=== PATIENT | female | born 1955 | race Caucasian/White ===

== ENCOUNTER 2018-02-22 11:55 | Outpatient (CLI) | payer BC, SELFPAY ==
[2018-02-22 12:56] LABS: Abs Immature Grans 0.01 k/cumm (0.0-0.09); Absolute Basophil Count 0.03 k/cumm (0.0-0.2); Absolute Eosinophil Count 0.45 k/cumm (0.0-0.7); Absolute Lymphocyte Count 1.79 k/cumm (1.2-3.4); Absolute Monocyte Count 0.61 k/cumm (0.11-0.7); Absolute Neutrophil Count 2.96 k/cumm (1.2-6.7); Basophils % 0.5; Eosinophils % 7.7; HCT 42.4 % (36.0-46.0); HGB 14.1 g/dL (12.0-15.5); Immature Grans % 0.2; Lymphocytes % 30.6; Mean Corp. HGB Concentration 33.3 g/dL (32.0-36.0); Mean Corpuscular Hemoglobin 30.9 pg (27.0-33.0); Mean Corpuscular Volume 92.8 fL (80-95); Mean Platelet Volume 9.6 fL (8.0-11.0); Monocytes % 10.4; Neutrophils % 50.6; Platelet Count 209 x1000/uL (130-400); RBC 4.57 m/cumm (4.00-5.20); RBC Distribution Width 12.8 % (11.7-14.6); White Blood Cell Count 5.85 k/cumm (4.4-10.8)
== END 2018-02-22 12:15 ==
PROVIDERS: PCP Emergency Medicine; Visit Provider Internal Medicine
DX: Z01.818 Encounter for other preprocedural examination (principal)
CPT/HCPCS: 36415; 85025

== ENCOUNTER 2018-08-09 01:40 | Outpatient (CLI) | payer BC, SELFPAY ==
[2018-08-09 11:39] LABS: Anion Gap 9.2 mmol/L (3-11); BUN 5 mg/dL (7-18); CO2 27.8 mmol/L (21.0-32.0); CREATININE 0.68 mg/dL (0.55-1.02); Calcium 9.4 mg/dL (8.5-10.1); Chloride 104 mmol/L (98-107); Cholesterol 129 mg/dL (50-200); Glucose 192 mg/dL (70-100); HDL Cholesterol 43 mg/dL (40-60); LDL CHOLESTEROL 73 mg/dL (<100); Potassium 4.1 mmol/L (3.5-5.1); Sodium 141 mmol/L (136-145); TSH 0.09 uIU/mL (0.358-3.74); Triglyceride 68 mg/dL (30-150)
[2018-08-09 12:01] LABS: C-Reactive Protein 0.06 mg/dL (0.0-0.3)
[2018-08-09 12:04] LABS: HCT 41.3 % (36.0-46.0); HGB 13.9 g/dL (12.0-15.5); Mean Corp. HGB Concentration 33.7 g/dL (32.0-36.0); Mean Corpuscular Hemoglobin 30.8 pg (27.0-33.0); Mean Corpuscular Volume 91.6 fL (80-95); Mean Platelet Volume 10.3 fL (8.0-11.0); Platelet Count 237 x1000/uL (130-400); RBC 4.51 m/cumm (4.00-5.20); White Blood Cell Count 4.84 k/cumm (4.4-10.8)
[2018-08-09 12:46] LABS: Hemoglobin A1C 8.6 % (4.5-6.2)
[2018-08-10 10:13] LABS: Cyclic Citrullinated Peptide <2.5 U/mL (<5.0)
[2018-08-10 12:10] LABS: Rheumatoid Factor <8 IU/mL (<12.5)
== END 2018-08-09 02:00 ==
PROVIDERS: PCP Emergency Medicine; Visit Provider Emergency Medicine
DX: E11.9 Type 2 diabetes mellitus without complications (principal); E03.9 Hypothyroidism, unspecified; I10 Essential (primary) hypertension; M25.50 Pain in unspecified joint; R79.89 Other specified abnormal findings of blood chemistry
CPT/HCPCS: 36415; 80048; 80061; 83721; 85027; 86200; 83036; 84439; 84443; 86140; 86431

== ENCOUNTER 2018-11-02 02:00 | Outpatient (CLI) | payer BC, SELFPAY ==
[2018-11-02 11:24] LABS: Hemoglobin A1C 8.3 % (4.5-6.2); TSH 0.09 uIU/mL (0.358-3.74)
== END 2018-11-02 02:20 ==
PROVIDERS: PCP Emergency Medicine; Visit Provider Emergency Medicine
DX: E11.9 Type 2 diabetes mellitus without complications (principal); E03.9 Hypothyroidism, unspecified
CPT/HCPCS: 36415; 83036; 84443

== ENCOUNTER 2018-12-28 01:36 | Outpatient (CLI) | payer BC, SELFPAY ==
[2018-12-28 11:37] LABS: FREE T4 1.13 ng/dL (0.76-1.46)
[2018-12-28 11:39] LABS: Hemoglobin A1C 7.9 % (4.5-6.2)
[2018-12-28 16:42] LABS: T3,Free 5.5 pg/ml (2.8-5.3)
== END 2018-12-28 01:56 ==
PROVIDERS: PCP Emergency Medicine; Visit Provider Emergency Medicine
DX: E03.9 Hypothyroidism, unspecified (principal); E11.9 Type 2 diabetes mellitus without complications; R79.89 Other specified abnormal findings of blood chemistry
CPT/HCPCS: 36415; 83036; 84439; 84481

== ENCOUNTER 2019-02-09 07:00 | Outpatient (CLI) | payer BC, SELFPAY ==
[2019-02-10 08:48] LABS: Cyclic Citrullinated Peptide <2.5 U/mL (<5.0)
[2019-02-10 10:18] LABS: Rheumatoid Factor <8 IU/mL (<12.5)
== END 2019-02-09 07:20 ==
PROVIDERS: PCP Emergency Medicine; Visit Provider Emergency Medicine
DX: M19.90 Unspecified osteoarthritis, unspecified site (principal); M25.50 Pain in unspecified joint
CPT/HCPCS: 36415; 86200; 86431

== ENCOUNTER 2019-03-22 16:29 | Outpatient (CLI) | payer BC, SELFPAY ==
--- NOTE | 2019-03-22 09:30 | DI.RAD_ITS ---
EXAM: XR CHEST 2V PA LATERAL INDICATION: cough, R05. COMPARISON: PORTABLE CHEST ONE VIEW from 09/18/2012 TECHNIQUE: 2D digital imaging was performed. FINDINGS: Heart size and pulmonary vasculature are within normal limits. The lungs are clear. No pleural effu suri or pneumothorax is present. Age appropriate degenerative changes are seen in the spine. IMPRESSION: No acute pulmonary process.
== END 2019-03-22 16:49 ==
PROVIDERS: PCP Emergency Medicine; Visit Provider Emergency Medicine
DX: R05 Cough (principal)
CPT/HCPCS: 71046

== ENCOUNTER 2019-04-26 07:50 | Day surgery (SDC) | payer MEDICARE, SELFPAY ==
--- NOTE | 2019-04-26 07:28 | PDOC.DSDIS_ITS ---
Discharge Plan Disposition Patient Disposition: HOME Condition: Good Discharge Details Reason For Visit: Right ring finger trigger finger Attending Provider: Donis Patel Primary Care Provider: Per Haile Home Meds and New Rx's Prescriptions: New acetaminophen 500 mg tablet 500 mg PO Q6H PRN (Reason: pain) Qty: 60 RF: 2 ibuprofen 600 mg tablet 600 mg PO TID PRN (Reason: pain) Qty: 60 RF: 2 Continued glipizide 10 mg tablet extended release 24hr 10 mg PO DAILY Qty: 90 RF: 4 albuterol sulfate [ProAir HFA] 90 mcg/actuation HFA aerosol inhaler 1 - 2 puff Inhalation Q4H PRN Qty: 2 RF: 0 atorvastatin 80 MG tablet 80 mg PO DAILY RF: 0 aspirin [Aspirin Low-Strength] 81 MG tablet,chewable 81 mg PO DAILY RF: 0 lisinopril 2.5 MG tablet 2.5 mg PO DAILY RF: 0 metoprolol tartrate 25 MG tablet 25 mg PO DIRECTED RF: 0 isosorbide mononitrate 30 MG tablet extended release 24 hr 30 mg PO DAILY Qty: 90 RF: 3 (DME) blood-glucose meter [eWiseTouch Ultra2 Meter] 1 EACH kit 1 ea Miscellaneous DAILY Qty: 1 RF: 0 (DME) OneTouch Ultra Test strip 1 ea Miscellaneous DAILY Qty: 100 RF: 3 Dulera 100-5 mcg/actuation HFA aerosol inhaler 2 puff Inhalation BID Qty: 3 RF: 6 nitroglycerin 0.4 mg tablet, sublingual 0.4 mg Sublingual PRN Qty: 60 RF: 2 metformin 500 mg tablet 500 mg PO BID Qty: 180 RF: 3 (DME) lancets [e[employer]iseTouch UltraSoft Lancets] Misc 1 ea Miscellaneous DAILY Qty: 100 RF: 3 naproxen sodium [Aleve] 220 MG tablet 220 mg PO PRN PRNRF: 0 Discharge Instructions Stand Alone Forms: Jorge Scott. Finger Release Referrals: Donis Patel MD [ [facility] STAFF PHYSICIAN] - Activity:: Activity as Tolerated Remove Dressings/Wound Care:: 48 hours Shower/Bathe:: 48 hours Diet:: As Tolerated Discharge Orders Discharge Orders: Discharge Order (Routine); Ordered 04/26/19 Ordered By: Nae Jj DS: Diagnosis Discharge Diagnosis (1) Trigger finger, right ring finger: Status: Chronic
[2019-04-26 08:09] VITALS: BP 130/71; PULSE 58; RESP 16; TEMP 36.6; O2SAT 96
[2019-04-26] MEDS: Sodium Bicarbonate 50 MEQ/50 ML VIAL (09:50)
--- NOTE | 2019-04-26 13:46 | W.PM.OP ---
Date of service: 04/26/19 Time of Service: 13:46 Operative Note Operative Note DATE OF PROCEDURE: 04/26/19 PRE-OP DIAGNOSIS: Right ring finger trigger finger POST-OP DIAGNOSIS: same PROCEDURE: Trigger Finger Release - right ring finger SURGEON: Donis Patel ANESTHESIA: local ESTIMATED BLOOD LOSS: 0 PATHOLOGY: none sent COMPLICATIONS: None Patient was transported to: same day Patient's condition: stable Indications: I have seen Bethany in clinic for symptoms of a trigger finger. The catching, clicking, locking, and pain limited function. The diagnosis of trigger finger was evident. The symptoms had not responded to conservative measures. I discussed trigger finger release with the patient. I reviewed the risks of the procedure to include, but not limited to, bleeding, infection, pain, stiffness, incomplete release, damage to nerves or vessels, continued catching, recurrence. Despite these risks, the patient elected to proceed. Findings: There was a tightened A1 wilner which was released. There is also another band more proximal, a 0, which constricted against the flexor tendons. There was notable thickened synovium seen around the entirety of the flexor tendons. The flexor tendons were inspected and the patient was able to move the finger without any catching, clicking, or locking. Procedure Description: Bethany was greeted in the preoperative holding area where the correct side was identified and marked. The consent was reviewed with the patient and signed. All questions were answered. She was taken back to the operating room. The patient was placed into the supine position on the operating room table with the right arm on an arm board. All bony prominences were well padded. No prophylactic antibiotics were administered since this was a clean, elective hand surgical case. The right arm was then prepped with Chloraprep and draped in a standard fashion with stockinette and extremity drape. A timeout to confirm correct identity, side and site, procedure, allergies, anesthesia, and medical concerns was performed. The surgical site was marked as a longitudinal incision directly over the A1 wilner of the involved digit. This was confirmed with palpation during finger flexion. This area, overlying the metacarpal head, was then anesthetized with 1% Lidocaine. The patient tolerated this well and once the anesthetic had setup, the procedure began. A longitudinal incision was made through skin only, approximately 1cm. The deep tissues were dissected bluntly. Once the A1 wilner and flexor tendons were identified the soft tissue including neurovascular structures were retracted medially and laterally. There were no crossing structures over the A1 wilner. The proximal edge of the wilner was identified and the wilner was incised with tenotomy scissors. There was a release of the tendons once this was fully released. However, there still seem to be some restriction of tendon motion. Therefore further investigation discovered a more proximal band, A0 wilner. This was released. The tendons were then removed from the wound and inspected. There is notable thickened synovium around the tendons. Excess synovium was resected. The tendons were then returned and the patient was asked to move the finger into deep flexion and back to extension. There was no recreation of the pre-operative symptoms. The hand was then once more inspected for any A0 wilner or area of possible constriction. The wound was then irrigated and the skin was closed with a 4-0 Nylon. This was dressed with gauze and a Conform dressing. The patient tolerated the procedure well and was returned to the Same Day Surgery area in a stable condition suffering no known complication.
== END 2019-04-26 10:15 | disposition home or self-care (01) ==
LOC: SUR 07:51
PROVIDERS: PCP Emergency Medicine; Visit Provider Student in an Organized Health Care Education/Training Program
PROC: (CPT 26055; principal; 2019-04-26 10:15)
DX: M65.341 Trigger finger, right ring finger (principal)
CPT/HCPCS: 26055

== ENCOUNTER 2019-05-05 09:30 | Outpatient (CLI) | payer MEDICARE, SELFPAY | END 2019-05-05 09:50 | PROVIDERS: PCP Emergency Medicine | DX: Z47.89 Encounter for other orthopedic aftercare (principal); M65.341 Trigger finger, right ring finger ==

== ENCOUNTER 2019-05-19 00:37 | Outpatient (CLI) | payer MEDICARE, SELFPAY ==
--- NOTE | 2019-05-19 11:55 | DI.MAMMO_ITS ---
EXAM: MG MAMMO SCREENING CLINICAL HISTORY: screening TECHNIQUE: Bilateral full field digital CC and MLO mammographic images were obtained with 3D tomosyn thesis and utilizing computer aided detection (CAD). COMPARISON: Available for comparison. FINDINGS: Masses/Architectural Distortion: None seen. Microcalcifications: No suspicious pleomorphic-type are seen. Skin Thickening/Nipple Retraction: None. IMPRESSION: 1. No significant interval change with no specific features of malignancy noted. 2. Unless there is more urgent need, screening mammography is recommended, as per [place] [employer] guidelines. ACR BI-RAD Category- 1 Negative Breast Density - Category B - Scattered areas of fibroglandular density A negative radiographic report should not delay biopsy if a dominant or clinically suspicious mass is present. Up to ten percent of cancers are not identified on mammography. A negative report may reinforce clinical impression. Adenosis and dense breasts may obscure an underlying neoplasm. False positive reports average 6 to 10%. Patient will receive a letter notifying them of these results.
== END 2019-05-19 00:57 ==
PROVIDERS: PCP Emergency Medicine; Visit Provider Emergency Medicine
DX: Z12.31 Encounter for screening mammogram for malignant neoplasm of breast (principal)
CPT/HCPCS: 77063; 77067

== ENCOUNTER 2020-01-26 03:52 | Outpatient (CLI) | payer MEDICARE, SELFPAY ==
[2020-01-26 09:32] LABS: ESR 5 mm/hr (0-30)
[2020-01-26 10:05] LABS: Anion Gap 5.6 mmol/L (3-11); BUN 7 mg/dL (7-18); CO2 28.4 mmol/L (21.0-32.0); CREATININE 0.61 mg/dL (0.55-1.02); Calcium 8.9 mg/dL (8.5-10.1); Calculated LDL 85 mg/dL (<100); Chloride 104 mmol/L (98-107); Cholesterol 144 mg/dL (<200); Glucose 292 mg/dL (74-106); HDL Cholesterol 40 mg/dL (40-60); Potassium 4.1 mmol/L (3.5-5.1); Sodium 138 mmol/L (136-145); TSH 0.08 uIU/mL (0.36-3.74); Triglyceride 99 mg/dL (<150)
[2020-01-26 10:15] LABS: C-Reactive Protein 0.06 mg/dL (0.0-0.3)
== END 2020-01-26 04:12 ==
PROVIDERS: PCP Emergency Medicine; Visit Provider Emergency Medicine
DX: E03.9 Hypothyroidism, unspecified (principal); I10 Essential (primary) hypertension; M19.079 Primary osteoarthritis, unspecified ankle and foot
CPT/HCPCS: 36415; 80048; 80061; 85652; 83036; 84443; 86140

== ENCOUNTER → 2020-03-15 11:13 | Outpatient (BNVA) | payer MEDICARE, SELFPAY | PROVIDERS: PCP Emergency Medicine; Referring Provider Emergency Medicine; Visit Provider Physical Therapy Assistant | DX: Z12.11 Encounter for screening for malignant neoplasm of colon (principal); Z80.0 Family history of malignant neoplasm of digestive organs; E11.9 Type 2 diabetes mellitus without complications; Z79.84 Long term (current) use of oral hypoglycemic drugs ==

== ENCOUNTER 2020-03-19 00:39 | Outpatient (CLI) | payer MEDICARE, SELFPAY ==
--- NOTE | 2020-03-19 | DI.CT_ITS ---
EXAM: CT NECK W CLINICAL HISTORY: LT SUBMANDIBULAR SWELLING,R60.9 TECHNIQUE: COMPARISON: No exams were available for comparison FINDINGS: CT examination of the cervical region was performed with intravenous infusion of 100 cc of Omnipaque 350. Images obtained through the lung apices show elongated branching radiodensities consistent with mucoid impaction of bronchi. No gross mediastinal mass or adenopathy seen. Visualized aortic arch major branch vessels appear intact. Carotid circulation unremarkable through the cervical region. V ertebral arteries unremarkable. There is marked enlargement of the right lobe of thyroid which measures up to 3.3 cm AP dimension tra nsaxial imaging. The trachea is narrowed at level of this finding measuring about 9 millimeters in w idth 3 cm in AP diameter. This is presumably secondary to pressure from enlarged right thyroid lobe. No cervical adenopathy. No submandibular mass. Parotid gland is unremarkable. Laryngeal structures appear intact as visualized. IMPRESSION: No left-sided cervical mass or adenopathy. Note is made however of marked enlargement of the right t hyroid lobe which is heterogeneous in appearance and which narrows the trachea at this level. Please correlate clinically regarding any evidence of airway obstruction. Additional evaluation with thyroid ultrasound suggested RADIATION DOSE DELIVERED: 426.25mGy.cm Total DLP
[2020-03-19 14:42] LABS: BUN 8 mg/dL (7-18); CREATININE 0.71 mg/dL (0.55-1.02)
[2020-03-19] MEDS: Omnipaque 350 MG/ML 100 ML BTL IJ (15:14)
[2020-03-19] MEDS: Normal Saline Flush 10 ML SYR IVP (15:15)
[2020-03-19] MEDS: Normal Saline - Diluent 50 ML VIAL IV (15:15)
== END 2020-03-19 00:59 ==
PROVIDERS: PCP Emergency Medicine; Visit Provider Otolaryngology Otolaryngology/Facial Plastic Surgery
DX: E04.8 Other specified nontoxic goiter (principal); R60.0 Localized edema; R60.9 Edema, unspecified
CPT/HCPCS: 70491; 84520; 82565; J3490

== ENCOUNTER 2020-03-29 00:52 | Outpatient (CLI) | payer MEDICARE, SELFPAY ==
[2020-03-29 15:31] LABS: FREE T4 1.32 ng/dL (0.76-1.46); TSH 0.12 uIU/mL (0.36-3.74)
[2020-04-06 12:49] LABS: Thyroglobulin Antibody <1.8 IU/mL (<4.0); Thyroperoxidase Antibody 0.8 IU/mL (<9.0)
== END 2020-03-29 01:12 ==
PROVIDERS: PCP Emergency Medicine; Visit Provider Physician Assistant
DX: E05.90 Thyrotoxicosis, unspecified without thyrotoxic crisis or storm (principal)
CPT/HCPCS: 36415; 86376; 84439; 84443

== ENCOUNTER 2020-03-30 10:37 | Day surgery (SDC) | payer MEDICARE, SELFPAY ==
[2020-03-30 10:47] VITALS: BP 144/82; PULSE 53; RESP 18; TEMP 36.7; O2SAT 95
[2020-03-30] MEDS: Lactated Ringers 1,000 ML 80 ML IV (11:22)
--- NOTE | 2020-03-30 12:21 | BOWEL_PTH ---
PATIENT: Bethany Varela LOC: [facility] U#:[id number] AGE/SX: 64/F ROOM: RE03/30/[address]: Nanci Pollock MD : 1955 BED: DIS: 03/30/2020 SPEC #: [id number] RECD: 03/30/20 13:48 STATUS: ONEYDA REQ #: [id number] MARIO: 03/30/20 12:[address]: Nanci Pollock DEPT: Surgical Specimen RECD BY: Aliza Smith ENTERED: 03/30/20 13:49 SP TYPE: Bowel OTHR DR: Per Haile DO Tissues: 1 - BIOPSY BOWEL 2 - BIOPSY BOWEL Procedures: GROSS AND MICRO LEVEL 4 Comments: [id number] ([id number] [facility] [place]#)
--- NOTE | 2020-03-30 12:54 | W.PM.DSUDISC ---
Discharge Plan Disposition Patient Disposition: HOME Condition: Good Discharge Details Reason For Visit: Colonoscopy Attending Provider: Nanci Pollock Primary Care Provider: Per Haile Home Meds and New Rx's Prescriptions: Continued metformin 500 mg tablet 1,000 mg PO BID Qty: 180 RF: 3 atorvastatin 80 MG tablet 80 mg PO DAILY RF: 0 aspirin [Aspirin Low-Strength] 81 MG tablet,chewable 81 mg PO DAILY RF: 0 metoprolol tartrate 25 MG tablet 25 mg PO DIRECTED RF: 0 isosorbide mononitrate 30 MG tablet extended release 24 hr 30 mg PO DAILY Qty: 90 RF: 3 (DME) blood-glucose meter [ezNetPay Ultra2 Meter] 1 EACH kit 1 ea Miscellaneous DAILY Qty: 1 RF: 0 nitroglycerin 0.4 mg tablet, sublingual 0.4 mg Sublingual PRN Qty: 60 RF: 2 (DME) blood sugar diagnostic Strip 1 ea Miscellaneous DAILY Qty: 100 RF: 3 (DME) lancets [[employer]Touch UltraSoft Lancets] Misc 1 ea Miscellaneous DAILY Qty: 100 RF: 3 lisinopril 2.5 mg tablet 2.5 mg PO DAILY Qty: 90 RF: 3 budesonide-formoterol [Symbicort] 80-4.5 mcg/actuation HFA aerosol inhaler 2 puff IH BID Qty: 10.2 RF: 3 albuterol sulfate [ProAir HFA] 90 mcg/actuation HFA aerosol inhaler 1 - 2 puff Inhalation Q4H PRN Qty: 2 RF: 0 glipizide 10 mg tablet extended release 24hr 10 mg PO DAILY Qty: 90 RF: 4 ibuprofen 600 mg tablet 600 mg PO TID PRN (Reason: pain) Qty: 60 RF: 2 naproxen sodium [Aleve] 220 MG tablet 220 mg PO PRN PRNRF: 0 acetaminophen 500 mg tablet 500 mg PO Q6H PRN (Reason: pain) Qty: 60 RF: 2 Discontinued polyethylene glycol 3350 17 gram/dose powder 238 g PO ONCE Qty: 238 RF: 0 bisacodyl [Dulcolax (bisacodyl)] 5 mg tablet,delayed release (DR/EC) 5 mg PO ONCE Qty: 4 RF: 0 Discharge Instructions Additional Instructions: Findings: Four small polyps were removed. My office will send a letter with biopsy results. Follow up: Plan for a colonoscopy in 3-5 years depending on biopsy results. Please call if you develop: fevers >101.5 Nausea or Vomiting Abdominal pain that is not transient DAY SURGERY UNIT POST COLONOSCOPY INSTRUCTIONS 1. Because there will be medication in your system for the next 24 hours, you may feel a little sleepy. Your coordination will be affected. Therefore: a. Do not drive or operate dangerous equipment for 24 hours. b. Do not drink alcohol beverages for 24 hours (not even beer). c. Plan to go home and rest for the day. 2. Generally there are no restrictions on your activity after a day or so has gone by, but you may feel a bit fatigued for a few days. 3 After you arrive home you may have a light meal and return to a normal diet as you can tolerate it without feeling sick to your stomach. 4. After surgery, you may feel pain or discomfort. This should be only transient, but if it persists please contact your doctor. 5. If there are any questions regarding the findings of your procedure, please feel free to contact your doctor. 6. If you are unable to contact your doctor with a problem, contact the hospital at [phone]. 7. Continue all your regular medications unless directed otherwise. I understand the above instructions and have no questions. Signature of Patient or Responsible Adult Escort Date/Time Name of Responsible Adult Escort Signature of Nurse Date/Time Activity:: Activity as Tolerated Diet:: As Tolerated Discharge Orders Discharge Orders: Discharge Order (Routine); Ordered 03/30/20 Ordered By: Nanci Pollock DS: Diagnosis Discharge Diagnosis (1) Colon polyps: Status: Acute
[2020-03-30 13:05] VITALS: BP 151/81; PULSE 57; RESP 16; TEMP 36.4; O2SAT 97
--- NOTE | 2020-04-01 19:09 | W.COLOREPORT ---
Colonoscopy Report Date of procedure: 03/30/20 Pre-op diagnosis general: Screening Post-op diagnosis procedure note: other (Colon polyps) Procedure: Colonoscopy with cold forceps polypectomy Surgeon: Nanci Pollock Anesthesia proc note operative: MAC Indications: This 64 year old woman presents for routine screening colonoscopy. Her last procedure in 2009 was normal. She has no symptoms or FH colon cancer. Procedure Description: The patient was placed in the left Morales position. Propofol was titrated to sedation. Digital rectal examination revealed no abnormalities. The scope was advanced to the cecum without difficulty. The ileocecal valve and appendiceal orifice were clearly identified. The prep was good. The scope was slowly withdrawn over the course of greater than 6 minutes. In the ascending colon, two diminuitive polyps were removed with the cold forceps and sent in the same specimen container. Two diminuitive polyps were removed from the transverse colon and sent in the same specimen container. No abnormalities were seen in the descending, sigmoid colon or rectum including on retroflexed view. The patient tolerated the procedure well and was stable to recovery. Plan for colonoscopy in 3-5 years depending on polyp pathology.
== END 2020-03-30 13:50 | disposition home or self-care (01) ==
PROVIDERS: PCP Emergency Medicine; Visit Provider Surgery
PROC: 0DJD8ZZ Inspection of Lower Intestinal Tract, Via Natural or Artificial Opening Endoscopic (ICD-10-PCS; CPT 45378; principal; 2020-03-30 12:45)
DX: Z12.11 Encounter for screening for malignant neoplasm of colon (principal); K21.9 Gastro-esophageal reflux disease without esophagitis; E11.9 Type 2 diabetes mellitus without complications; I10 Essential (primary) hypertension
CPT/HCPCS: 45380; 88305; J2001

== ENCOUNTER 2020-05-02 01:15 | Outpatient (CLI) | payer MEDICARE, SELFPAY ==
--- NOTE | 2020-05-02 10:15 | DI.NM_ITS ---
CLINICAL HISTORY: ASYMMETRICAL THYROID, E07.9. COMPARISON: CT CT NECK W from 03/19/2020 NM NM I123 THYROID UP SC DAY 1 from 05/02/2020 TECHNIQUE: Capsule Dose: 353 uCi I-123 Images: At 4 hours. FINDINGS: The radio iodine uptake at 4 hours is 8.5 percent. The total radioiodine uptake was 25.4% at 24 hours. Images at 4 hours show a hot nodule occupying the right lobe the thyroid, consistent with a functioni ng nodule. Findings likely cyst signify a benign nodule... IMPRESSION: 1. Total radioiodine uptake of 25.4%, in the normal range.. SNM Guidelines: Normal uptake values 10-35%. Graves Uptake >50-80%. 2. A hot nodule is noted corresponding to the findings on the previous CT. DATA REPOSITORY:
== END 2020-05-02 01:35 ==
PROVIDERS: PCP Emergency Medicine; Visit Provider Otolaryngology Otolaryngology/Facial Plastic Surgery
DX: E04.1 Nontoxic single thyroid nodule (principal)
CPT/HCPCS: A9516

== ENCOUNTER 2020-05-03 02:13 | Outpatient (CLI) | payer MEDICARE, SELFPAY | END 2020-05-03 02:33 | PROVIDERS: PCP Emergency Medicine; Visit Provider Otolaryngology Otolaryngology/Facial Plastic Surgery | DX: E07.89 Other specified disorders of thyroid (principal) | CPT/HCPCS: 78014; A9512 ==

== ENCOUNTER 2020-05-22 03:23 | Outpatient (CLI) | payer MEDICARE, SELFPAY ==
[2020-05-22 13:57] LABS: Hemoglobin A1C 7.6 % (<5.7)
== END 2020-05-22 03:43 ==
PROVIDERS: PCP Emergency Medicine; Visit Provider Emergency Medicine
DX: E11.9 Type 2 diabetes mellitus without complications (principal)
CPT/HCPCS: 36415; 83036

== ENCOUNTER 2020-08-10 11:56 | Outpatient (REF) | payer MEDICARE, SELFPAY ==
--- NOTE | 2020-08-10 10:30 | PAPFT_PTH ---
PATIENT: Bethany Varela LOC: [facility] U#:[id number] AGE/SX: 65/F ROOM: RE08/10/[address]: EVER Rausch : 1955 BED: DIS: 08/10/2020 SPEC #: [id number] RECD: 08/10/20 12:56 STATUS: ONEYDA REQ #: [id number] MARIO: 08/10/20 10:[address]: Miguelina Harry DEPT: [facility] Cytology RECD BY: Diamond Allison ENTERED: 08/10/20 12:56 SP TYPE: PAPFT OTHR DR: Ana Haro MD, DC Tissues: 1 - CX/ENDOCX FOR PAP SMEARS Procedures: PAP THIN PREP/UVM Screening HPV DNA PROBE Comments: [id number]
== END 2020-08-10 11:57 | disposition home or self-care (01) ==
LOC: LBN 11:56
PROVIDERS: PCP Family Medicine; Visit Provider Nurse Practitioner Family
DX: Z12.4 Encounter for screening for malignant neoplasm of cervix (principal); Z11.51 Encounter for screening for human papillomavirus (HPV)
CPT/HCPCS: 88142; 87624

== ENCOUNTER 2020-08-14 01:43 | Outpatient (CLI) | payer MEDICARE, SELFPAY ==
--- NOTE | 2020-08-14 11:55 | DI.MAMMO_ITS ---
EXAM: MG MAMMO SCREENING CLINICAL HISTORY: screening,Z12.39 TECHNIQUE: Bilateral full field digital CC and MLO mammographic images were obtained with 3D tomosyn thesis and utilizing computer aided detection (CAD). COMPARISON: Available for comparison. FINDINGS: Masses/Architectural Distortion: There is an asymmetry in the outer central right breast on the crani ocaudad view 7 cm from the nipple. Microcalcifications: No suspicious pleomorphic-type are seen. Skin Thickening/Nipple Retraction: None. IMPRESSION: 1. Asymmetry in the outer central right breast. This is appreciated on the CC view. 2. Further evaluation with spot compression view and a right breast ultrasound is recommended. BI-RADS Category 0 - Assessment Incomplete: Need additional imaging evaluation Breast Density - Category B - Scattered areas of fibroglandular density Breast density category C or D implies that the patient has dense breast tissue. Dense breast tissue is very common and is not abnormal but dense breast tissue can make it harder to find cancer on a ma mmogram. Also, dense breast tissue may increase their breast cancer risk. This information about the result of the mammogram report was provided to the patient to raise their awareness. Use this report when you speak with the patient about their risks for breast cancer, which includes their family hist ory. At that time, you may recommend for more screening tests (Ultrasound or MRI) as they might be us eful based on their risk. A negative radiographic report should not delay biopsy if a dominant or clinically suspicious mass is present. Up to ten percent of cancers are not identified on mammography. A negative report may reinforce clinical impression. Adenosis and dense breasts may obscure an underlying neoplasm. False positive reports average 6 to 10%. Patient will receive a letter notifying them of these results.
== END 2020-08-14 02:03 ==
PROVIDERS: PCP Family Medicine; Visit Provider Nurse Practitioner Family
DX: Z12.31 Encounter for screening mammogram for malignant neoplasm of breast (principal); R92.8 Other abnormal and inconclusive findings on diagnostic imaging of breast
CPT/HCPCS: 77063; 77067

== ENCOUNTER 2020-08-17 04:00 | Outpatient (CLI) | payer MEDICARE, SELFPAY ==
--- NOTE | 2020-08-17 | DI.US_ITS ---
EXAM: MG MAMMO SCREEN CALL BACK UNI CLINICAL HISTORY: F/U MAMMO, ASYMMETRY OUTER CENTRAL BREAST TECHNIQUE: Mammograms were interpreted according to the usual protocol including computer analysis w ith CAD system, tomosynthesis and C-view imaging. COMPARISON: FINDINGS: Additional mammographic views of the right breast and right breast ultrasound are interpreted in conj unction. These examinations were obtained to evaluate questionable area of nodularity projected in t he central portion of the right breast about 6 cm from the nipple seen on recent CC view. Additional mammographic views fail to show a discrete mass. Breast ultrasound shows no evidence of m ass or cyst. There is mild persistent mammographic asymmetric density at this site on compression vi ews. IMPRESSION: No specific evidence of malignancy at this time. Follow-up unilateral right breast mammogram recomme nded in 6 months. BI-RADS Category 3 - 6 month - Probably Benign Finding: Recommend follow-up mammography in 6 months Breast Density - Category C - Heterogeneously dense
== END 2020-08-17 04:20 ==
PROVIDERS: PCP Family Medicine; Visit Provider Nurse Practitioner Family
DX: Z12.31 Encounter for screening mammogram for malignant neoplasm of breast (principal); R92.8 Other abnormal and inconclusive findings on diagnostic imaging of breast; N64.59 Other signs and symptoms in breast
CPT/HCPCS: 76642; 77063; 77067

== ENCOUNTER 2020-08-20 04:15 | Outpatient (CLI) | payer MEDICARE, SELFPAY ==
[2020-08-20 13:05] LABS: Hemoglobin A1C 9.6 % (<5.7)
[2020-08-20 13:16] LABS: ALT 27 U/L (14-59); AST 11 U/L (15-37); Albumin 3.5 g/dL (3.4-5.0); Alkaline Phosphatase 125 U/L (46-116); Anion Gap 6.7 mmol/L (3-11); BUN 12 mg/dL (7-18); CO2 29.3 mmol/L (21.0-32.0); CREATININE 0.8 mg/dL (0.55-1.02); Calculated LDL 71 mg/dL (<100); Chloride 102 mmol/L (98-107); Cholesterol 128 mg/dL (<200); Glucose 386 mg/dL (74-106); HDL Cholesterol 40 mg/dL (40-60); Potassium 4.7 mmol/L (3.5-5.1); Sodium 138 mmol/L (136-145); TSH (W/Ref FT4) 0.01 uIU/mL (0.36-3.74); Total Protein 6.3 g/dL (6.4-8.2); Triglyceride 89 mg/dL (<150)
[2020-08-20 13:26] LABS: COMMENT (LAB VIEW ONLY) 24.31 mg/dL; Microalb ug/mg Crea 32.1 ug/mg Cr
[2020-08-20 13:51] LABS: FREE T4 1.33 ng/dL (0.76-1.46)
[2020-08-23 17:20] LABS: IGF-1, LC/MS, S 648 ng/mL (34-194); Z-score >3.00 SD
== END 2020-08-20 04:16 | disposition home or self-care (01) ==
LOC: LOS 04:15
PROVIDERS: PCP Family Medicine; Visit Provider Student in an Organized Health Care Education/Training Program
DX: I10 Essential (primary) hypertension (principal); E03.9 Hypothyroidism, unspecified; R94.6 Abnormal results of thyroid function studies; E78.5 Hyperlipidemia, unspecified; R79.89 Other specified abnormal findings of blood chemistry; E11.9 Type 2 diabetes mellitus without complications
CPT/HCPCS: 36415; 80053; 80061; 82043; 82570; 83036; 84305; 84439; 84443

== ENCOUNTER 2020-09-20 01:59 | Outpatient (CLI) | payer MEDICARE, SELFPAY ==
[2020-09-25 12:31] LABS: IGF-1, LC/MS, S 665 ng/mL (34-194); Z-score >3.00 SD
== END 2020-09-20 02:00 | disposition home or self-care (01) ==
LOC: LOS 02:00
PROVIDERS: PCP Family Medicine; Visit Provider Student in an Organized Health Care Education/Training Program
DX: E22.0 Acromegaly and pituitary gigantism (principal)
CPT/HCPCS: 36415; 84305

== ENCOUNTER 2021-04-02 01:08 | Outpatient (CLI) | payer MEDICARE, SELFPAY ==
--- NOTE | 2021-04-02 14:44 | DI.MAMMO_ITS ---
Exam(s) MAMMO DIAGNOSTIC UNI EXAM: MAMMO DIAGNOSTIC UNI CLINICAL HISTORY: 6 mo f/u right mammo,r92.8. TECHNIQUE: Craniocaudal and mediolateral oblique Full Field Digital Mammography views of the right b reast with Computer Aided Diagnosis followed by Tomosynthesis. COMPARISON: Priors available for comparison FINDINGS: Mammography/Tomosynthesis: Masses/Architectural Distortion: No suspicious masses are seen. No areas of architectural distortion are present. Focal asymmetries appear stable compared to the prior examinations. Microcalcifictions: No suspicious pleomorphic-type are seen. Skin Thickening/Nipple Retraction: None. IMPRESSION: 1. No evidence of malignancy is noted. 2. Unless there is more urgent need, follow-up screening mammography is recommended, as per [place] [employer] guidelines. 3. The findings were discussed with the patient on the date of the examination. BI-RADS Category 1 - Negative Breast Density - Category C - Heterogeneously dense Breast density Category C or D implies that the patient has dense breast tissue. Dense breast tissue can make it harder to find cancer on a mammogram. Dense breast tissue is also associated with an incr eased risk of breast cancer. This information about the result of the mammogram report was provided to the patient to raise their awareness. Use this report when you speak with the patient about their risks for breast cancer, which includes their family history. At that time, you may recommend additional screening tests (Ultrasoun d or MRI) as these tests may add significant information. A negative radiographic report should not delay biopsy if a dominant or clinically suspicious mass is present. Up to ten percent of cancers are not identified on mammography. A negative report may reinforce clinical impression. Adenosis and dense breasts may obscure an underlying neoplasm. False positive reports average 6 to 10%. Patient will receive a letter notifying them of these results.
== END 2021-04-02 01:28 ==
PROVIDERS: PCP Family Medicine; Visit Provider Nurse Practitioner Family
DX: Z12.31 Encounter for screening mammogram for malignant neoplasm of breast (principal); R92.8 Other abnormal and inconclusive findings on diagnostic imaging of breast; N64.89 Other specified disorders of breast
CPT/HCPCS: 77061; 77065; G0279

== ENCOUNTER 2021-10-02 01:44 | Outpatient (CLI) | payer MEDICARE, SELFPAY ==
[2021-10-02 11:00] LABS: ALT 29 U/L (14-59); AST 17 U/L (15-37); Albumin 3.7 g/dL (3.4-5.0); Alkaline Phosphatase 86 U/L (46-116); Anion Gap 8.6 mmol/L (3-11); BUN 9 mg/dL (7-18); CO2 28.4 mmol/L (21.0-32.0); CREATININE 0.9 mg/dL (0.55-1.02); Calcium 9.6 mg/dL (8.5-10.1); Chloride 105 mmol/L (98-107); Glucose 191 mg/dL (74-106); Potassium 4.8 mmol/L (3.5-5.1); Sodium 142 mmol/L (136-145); TSH (W/Ref FT4) 0.01 uIU/mL (0.36-3.74); Total Protein 6.6 g/dL (6.4-8.2)
[2021-10-02 11:21] LABS: FREE T4 1.09 ng/dL (0.76-1.46)
== END 2021-10-02 01:45 | disposition home or self-care (01) ==
LOC: LBO 01:45
PROVIDERS: PCP Family Medicine; Visit Provider Family Medicine
DX: E11.9 Type 2 diabetes mellitus without complications (principal); R79.89 Other specified abnormal findings of blood chemistry
CPT/HCPCS: 36415; 80053; 84439; 84443

== ENCOUNTER 2022-01-23 05:06 | Outpatient (CLI) | payer MEDICARE, SELFPAY ==
[2022-01-23 13:25] LABS: ALT 25 U/L (14-59); AST 18 U/L (15-37); Albumin 3.8 g/dL (3.4-5.0); Alkaline Phosphatase 55 U/L (46-116); Anion Gap 7.3 mmol/L (3-11); BUN 10 mg/dL (7-18); CO2 28.7 mmol/L (21.0-32.0); CREATININE 0.9 mg/dL (0.55-1.02); Calcium 9.4 mg/dL (8.5-10.1); Chloride 107 mmol/L (98-107); Estimated GFR 70.07 (mL/min/1.73m2); Glucose 137 mg/dL (74-106); Hemoglobin A1C 6.9 % (<5.7); Potassium 4.8 mmol/L (3.5-5.1); Sodium 143 mmol/L (136-145); Total Protein 6.6 g/dL (6.4-8.2)
== END 2022-01-23 05:07 | disposition home or self-care (01) ==
LOC: LOS 05:06
PROVIDERS: PCP Family Medicine; Visit Provider Family Medicine
DX: E11.9 Type 2 diabetes mellitus without complications (principal); E22.0 Acromegaly and pituitary gigantism; I10 Essential (primary) hypertension; Z86.018 Personal history of other benign neoplasm
CPT/HCPCS: 36415; 80053; 83036

== ENCOUNTER 2022-01-23 14:12 | Outpatient (REF) | payer MEDICARE, SELFPAY ==
[2022-01-24 18:10] LABS: Albumin, Ur < 0.6 mg/dL (See Note); Creatinine, Ur 39.7 mg/dL (See Note)
== END 2022-01-23 14:13 | disposition home or self-care (01) ==
LOC: LBN 14:12
PROVIDERS: PCP Family Medicine; Visit Provider Family Medicine
DX: E11.9 Type 2 diabetes mellitus without complications (principal); I10 Essential (primary) hypertension; E22.0 Acromegaly and pituitary gigantism
CPT/HCPCS: 82043; 82570

== ENCOUNTER 2022-04-25 02:47 | Outpatient (CLI) | payer MEDICARE, SELFPAY ==
[2022-04-25 13:32] LABS: Hemoglobin A1C 7.2 % (<5.7)
[2022-04-25 14:47] LABS: ALT 16 U/L (14-59); AST 15 U/L (15-37); Albumin 3.7 g/dL (3.4-5.0); Alkaline Phosphatase 57 U/L (46-116); Anion Gap 8.4 mmol/L (3-11); BUN 12 mg/dL (7-18); Bilirubin, Total 0.6 mg/dL (0.2-1.0); CO2 28.6 mmol/L (21.0-32.0); Calcium 9.3 mg/dL (8.5-10.1); Chloride 105 mmol/L (98-107); Estimated GFR 61.75 (mL/min/1.73m2); FREE T4 0.94 ng/dL (0.76-1.46); Glucose 134 mg/dL (74-106); Potassium 4.7 mmol/L (3.5-5.1); Sodium 142 mmol/L (136-145); TSH 1.17 uIU/mL (0.36-3.74); Total Protein 6.6 g/dL (6.4-8.2)
[2022-04-28 09:19] LABS: FSH 39.2 mIU/mL (See Note)
[2022-04-28 09:24] LABS: LH 12.7 mIU/mL (See Note); Prolactin 5.1 ng/mL (See Note)
== END 2022-04-25 02:48 | disposition home or self-care (01) ==
LOC: LBO 02:47
PROVIDERS: PCP Family Medicine; Visit Provider Student in an Organized Health Care Education/Training Program
DX: D35.2 Benign neoplasm of pituitary gland (principal); E11.9 Type 2 diabetes mellitus without complications; E05.90 Thyrotoxicosis, unspecified without thyrotoxic crisis or storm
CPT/HCPCS: 36415; 80053; 83001; 83002; 83036; 84146; 84439; 84443

== ENCOUNTER 2022-08-26 10:50 | Outpatient (REF) | payer MEDICARE, SELFPAY ==
[2022-08-26 13:19] LABS: Microalb ug/mg Crea 10.5 ug/mg Cr
== END 2022-08-26 10:51 | disposition home or self-care (01) ==
LOC: LBN 10:50
PROVIDERS: PCP Family Medicine; Visit Provider Family Medicine
DX: E11.9 Type 2 diabetes mellitus without complications (principal)
CPT/HCPCS: 82043; 82570

== ENCOUNTER 2022-09-04 11:21 | Outpatient (CLI) | payer MEDICARE, SELFPAY ==
[2022-09-04 10:46] LABS: Anion Gap 6.2 mmol/L (3-11); BUN 15 mg/dL (7-18); CO2 30.8 mmol/L (21.0-32.0); Calcium 9.1 mg/dL (8.5-10.1); Calculated LDL 66 mg/dL (<100); Chloride 103 mmol/L (98-107); Cholesterol 126 mg/dL (<200); Estimated GFR 61.36 (mL/min/1.73m2); Glucose 303 mg/dL (74-106); HDL Cholesterol 43 mg/dL (40-60); Potassium 4.7 mmol/L (3.5-5.1); Sodium 140 mmol/L (136-145); Triglyceride 87 mg/dL (<150)
== END 2022-09-04 11:22 | disposition home or self-care (01) ==
LOC: LBO 11:21
PROVIDERS: PCP Family Medicine; Visit Provider Physician Assistant Medical
DX: I25.10 Atherosclerotic heart disease of native coronary artery without angina pectoris (principal)
CPT/HCPCS: 36415; 80048; 80061; 83735

== ENCOUNTER 2022-11-10 08:40 | Outpatient (CLI) | payer MEDICARE, SELFPAY ==
--- NOTE | 2022-11-10 08:40 | RT.EKG_ITS ---
APPROVED REPORT Exam: Resting ECG Reason for Exam: Cataract surgery scheduled at [facility] [place] Patient Location: O HR:53 bpm ECG Measurements Heart Rate 53 AXIS SD 168 P 51 QRSd 120 QRS -11 QT 446 T 100 QTc 419 Conclusion Sinus rhythm...normal P axis, V-rate 50- 99 LVH with secondary repolarization abnormality...multi-LVH criteria, abnrm ST-T Inferior infarct, old...Q >35mS, II III aVF
== END 2022-11-10 08:41 | disposition home or self-care (01) ==
LOC: DI.CM 08:43
PROVIDERS: PCP Family Medicine; Visit Provider Family Medicine
DX: Z01.818 Encounter for other preprocedural examination (principal)
CPT/HCPCS: 93010

== ENCOUNTER 2022-12-02 01:01 | Outpatient (CLI) | payer MEDICARE, SELFPAY ==
--- NOTE | 2022-12-02 08:30 | DI.RAD_ITS ---
Exam(s) XR KNEE LT 3V AP,LAT,ERNESTO EXAM: XR KNEE LT 3V AP,LAT,ERNESTO CLINICAL HISTORY: knee pain,lt, m25.562. TECHNIQUE: 2D digital imaging was performed. COMPARISON: No exams were available for comparison FINDINGS: 3 views No evidence of fracture or obvious joint effusion. Large sesamoid bone noted in the distal patellar tendon. Another calcification is seen posteriorly,, this measuring 6 x 5 mm. This is medially locat ed and therefore not the fabella. There are mild degenerative changes in the medial compartment. The none in the lateral compartment. Patellofemoral compartment unremarkable. IMPRESSION: Mild degenerative changes in the medial compartment. Other changes as above. DATA REPOSITORY: RADIATION DOSE DELIVERED:
== END 2022-12-02 01:21 ==
LOC: DI 01:01
PROVIDERS: PCP Family Medicine; Visit Provider Family Medicine
DX: M25.562 Pain in left knee (principal); M17.12 Unilateral primary osteoarthritis, left knee; M25.862 Other specified joint disorders, left knee
CPT/HCPCS: 73562

== ENCOUNTER 2023-09-24 11:03 | Outpatient (CLI) | payer MEDICARE, SELFPAY ==
[2023-09-24 12:27] LABS: HCT 42.7 % (36.0-46.0); HGB 13.5 g/dL (11.2-15.7); MCH 30.2 pg (27.0-33.0); MCHC 31.6 % (32.0-36.0); MCV 96 fL (80-95); MPV 9.6 fL (8.0-11.0); Platelet Count 248 10^3/uL (130-400); RBC 4.47 10^6/uL (3.93-5.22); RDW 13.9 % (11.7-14.6); RDW-SD 48.6 fL; WBC 7.28 10^3/uL (4.4-10.8)
[2023-09-24 12:41] LABS: COMMENT (LAB VIEW ONLY) 22.24 mg/dL
[2023-09-24 12:52] LABS: Hemoglobin A1C 6.6 % (<5.7)
[2023-09-24 12:54] LABS: ALT 35 U/L (14-59); AST 19 U/L (15-37); Alkaline Phosphatase 64 U/L (46-116); Anion Gap 8.3 mmol/L (3-11); BUN 21 mg/dL (7-18); Bilirubin, Total 0.5 mg/dL (0.2-1.0); CO2 29.7 mmol/L (21.0-32.0); CREATININE 1.2 mg/dL (0.55-1.02); Calcium 9.9 mg/dL (8.5-10.1); Calculated LDL 72 mg/dL (<100); Chloride 102 mmol/L (98-107); Cholesterol 153 mg/dL (<200); Glucose 114 mg/dL (74-106); HDL Cholesterol 55 mg/dL (40-60); Potassium 4.3 mmol/L (3.5-5.1); Sodium 140 mmol/L (136-145); TSH (W/Ref FT4) 0.58 uIU/mL (0.36-3.74); Total Protein 6.8 g/dL (6.4-8.2); Triglyceride 130 mg/dL (<150)
== END 2023-09-24 11:04 | disposition home or self-care (01) ==
LOC: LOS 11:04
PROVIDERS: PCP Family Medicine; Visit Provider Family Medicine
DX: I10 Essential (primary) hypertension (principal); D64.9 Anemia, unspecified; E03.9 Hypothyroidism, unspecified; E11.9 Type 2 diabetes mellitus without complications
CPT/HCPCS: 36415; 80053; 80061; 85027; 82043; 82570; 83036; 84443

== ENCOUNTER → 2023-10-16 00:06 | Outpatient (CLI) | payer MEDICARE, SELFPAY ==
--- NOTE | 2023-10-16 08:30 | DI.DEXA_ITS ---
Exam(s) XR DEXA BONE DENSITY W/WO NIKKI EXAM: XR DEXA BONE DENSITY W/WO NIKKI CLINICAL HISTORY: post menopausal status, screening for osteoporosis, z78.0 TECHNIQUE: COMPARISON: DX DEXA BONE DENSITY WITH NIKKI from 10/24/2009 FINDINGS: Lateral Spine Image: Unremarkable. No compression deformities identified. Left hip: Total T-Score: -1.4. This compares to -0.5 on the prior examination. Total Z-Score: 0.1 T- and Z-scores: Findings are consistent with osteopenia. No evidence of osteoporosis. Lumbar Spine: Total T-Score: 0.8. This compares to -0.5 on the prior examination. Total Z-Score: 2.8 T- and Z-scores: Within normal limits. IMPRESSION: No evidence of osteoporosis.
--- NOTE | 2023-10-16 08:30 | DI.MAMMO_ITS ---
Exam(s) MAMMO SCREENING EXAM: MAMMO SCREENING CLINICAL HISTORY: screening,Z12.39 TECHNIQUE: Mammograms were interpreted according to the usual protocol including computer analysis w [employer] CAD system, tomosynthesis and C-view imaging. COMPARISON: 2013 through 2020 FINDINGS: The breasts are composed of scattered fibroglandular densities, Breast Density category B. No suspicious masses or suspicious microcalcifications are seen. No skin thickening or abnormal axillary lymph nodes are seen. There has been no significant change from prior exams. IMPRESSION: BI-RADS Category 1, Negative mammogram Yearly screening mammography is recommended. Breast Density - Category B, scattered fibroglandular densities. A negative radiographic report should not delay biopsy if a dominant or clinically suspicious mass is present. Up to ten percent of cancers are not identified on mammography. A negative report may reinforce clinical impression. Adenosis and dense breasts may obscure an underlying neoplasm. False positive reports average 6 to 10%. Patient will receive a letter notifying them of these results.
== END ==
PROVIDERS: PCP Family Medicine; Visit Provider Family Medicine
DX: Z12.31 Encounter for screening mammogram for malignant neoplasm of breast (principal); Z78.0 Asymptomatic menopausal state
CPT/HCPCS: 36415; 77063; 77067; 77080; 84439; 84443; 84480

== ENCOUNTER 2023-10-16 15:18 | Outpatient (CLI) | payer MEDICARE, SELFPAY ==
[2023-10-16 18:05] LABS: FREE T4 1.01 ng/dL (0.76-1.46); TSH 0.57 uIU/Ml (0.36-3.74)
[2023-10-17 22:10] LABS: T3, Total 136 ng/dL (97-169)
== END 2023-10-16 15:19 | disposition home or self-care (01) ==
PROVIDERS: PCP Family Medicine; Visit Provider Student in an Organized Health Care Education/Training Program
DX: E05.90 Thyrotoxicosis, unspecified without thyrotoxic crisis or storm (principal)
CPT/HCPCS: 36415; 84439; 84443; 84480

== ENCOUNTER → 2024-01-14 10:29 | Outpatient (BNVA) | payer MEDICARE, SELFPAY | PROVIDERS: PCP Family Medicine; Referring Provider Family Medicine; Visit Provider Physical Therapy Assistant | DX: Z12.11 Encounter for screening for malignant neoplasm of colon (principal); Z86.010 Personal history of colon polyps ==

== ENCOUNTER 2024-06-02 05:00 | Outpatient (CLI) | payer MEDICARE, SELFPAY ==
[2024-06-02 12:12] LABS: Vitamin D 25 Total 41.1 ng/mL (30-100)
== END 2024-06-02 05:01 | disposition home or self-care (01) ==
LOC: LBO 05:00
PROVIDERS: PCP Family Medicine; Visit Provider Family Medicine
DX: E55.9 Vitamin D deficiency, unspecified (principal)
CPT/HCPCS: 36415; 82306

== ENCOUNTER 2024-10-27 10:57 | Outpatient (CLI) | payer MEDICARE, SELFPAY ==
[2024-10-27 12:19] LABS: HCT 40.8 % (36.0-46.0); HGB 13.1 g/dL (11.2-15.7); MCH 28.2 pg (27.0-33.0); MCHC 32.1 % (32.0-36.0); MCV 88 fL (80-95); MPV 10.1 fL (8.0-11.0); Platelet Count 288 10^3/uL (130-400); RBC 4.64 10^6/uL (3.93-5.22); RDW 14.6 % (11.7-14.6); RDW-SD 46.5 fL; WBC 6.67 10^3/uL (4.4-10.8)
[2024-10-27 12:40] LABS: TSH (W/Ref FT4) 0.49 uIU/mL (0.36-3.74)
[2024-10-28 09:42] LABS: Hepatitis C Ab w Rflx HCV PCR Negative (Negative)
== END 2024-10-27 10:58 | disposition home or self-care (01) ==
PROVIDERS: PCP Family Medicine; Referring Provider Family Medicine; Visit Provider Family Medicine
DX: D64.9 Anemia, unspecified (principal); E03.9 Hypothyroidism, unspecified; Z11.59 Encounter for screening for other viral diseases
CPT/HCPCS: 36415; 85027; 86803; 84443

== ENCOUNTER 2024-10-27 12:51 | Outpatient (REF) | payer MEDICARE, SELFPAY ==
[2024-10-27 14:19] LABS: COMMENT (LAB VIEW ONLY) 51.84 mg/dL; Microalb ug/mg Crea 7.1 ug/mg Cr
== END 2024-10-27 12:52 | disposition home or self-care (01) ==
LOC: LBN 12:51
PROVIDERS: PCP Family Medicine; Visit Provider Family Medicine
DX: E11.9 Type 2 diabetes mellitus without complications (principal)
CPT/HCPCS: 82043; 82570

== ENCOUNTER 2024-11-30 02:36 | Outpatient (CLI) | payer MEDICARE, SELFPAY ==
--- NOTE | 2024-11-30 07:42 | DI.MAMMO_ITS ---
Exam(s) MAMMO SCREENING EXAM: MAMMO SCREENING CLINICAL HISTORY: screening,z12.39 TECHNIQUE: Mammograms were interpreted according to the usual protocol including computer analysis with CAD system, tomosynthesis and C-view imaging. COMPARISON: 2014 through 2023 FINDINGS: The breasts are composed of scattered fibroglandular densities, Breast Density category B. No suspicious masses or suspicious microcalcifications are seen. No skin thickening or abnormal axillary lymph nodes are seen. There has been no significant change from prior exams. IMPRESSION: BI-RADS Category 1, Negative mammogram Yearly screening mammography is recommended. Breast Density - Category B - There are scattered areas of fibroglandular density. Breast density Category C or D implies that the patient has dense breast tissue. Dense breast tissue can make it harder to find cancer on a mammogram. Dense breast tissue is also associated with an increased risk of breast cancer. This information about the result of the mammogram report was provided to the patient to raise their awareness. Use this report when you speak with the patient about their risks for breast cancer, which includes their family history. At that time, you may recommend additional screening tests (Ultrasound or MRI) as these tests may add significant information. A negative radiographic report should not delay biopsy if a dominant or clinically suspicious mass is present. Up to ten percent of cancers are not identified on mammography. A negative report may reinforce clinical impression. Adenosis and dense breasts may obscure an underlying neoplasm. False positive reports average 6 to 10%. Patient will receive a letter notifying them of these results.
== END 2024-11-30 02:56 ==
LOC: DI 02:37
PROVIDERS: PCP Family Medicine; Visit Provider Family Medicine
DX: Z12.31 Encounter for screening mammogram for malignant neoplasm of breast (principal); R92.323 Mammographic fibroglandular density, bilateral breasts
CPT/HCPCS: 77063; 77067